=== PATIENT | male | born 1990 | race Hispanic/Latino ===

== ENCOUNTER 2018-04-16 12:33 | Emergency (ER) | payer MEDICAID ==
[2018-04-16 12:46] VITALS: BMI 38.0
[2018-04-16] MEDS ORDERED: Morphine 2 mg/ml ISec IVP STA (13:29)
--- NOTE | 2018-04-16 13:37 | ED PDOC ---
Arrival/HPI - General Chief Complaint: Back Pain Time Seen by Provider: 04/16/18 12:46 Historian: Patient - History of Present Illness Narrative History of Present Illness (Text): 04/16/18 13:32 Pt is a 27 yo M with PMH of hyperlipidemia and GERD presents to Emergency department due to right sided abdominal pain. Patient states that pain was sudden in onset this AM localized to the RLQ that radiates to the back. Patient denies radiation to groin or any groin pain. Patient states that pain is worsened with movements and denies any alleviating factors. Patient states that his urine has been dark, but denies hematuria. Patient states that he has some constipation, with minor rectal bleeding and pain when he's constipated. Patient denies chest pain, shortness of breath, nausea, vomiting, diarrhea, fever, chills, headache, or dizziness. Time/Duration: 1-3 hours Symptom Course: Unchanged Quality: Stabbing, Throbbing Severity Level: 9 Past Medical History - Infectious Disease Hx of Infectious Diseases: None - Pulmonary Hx Respiratory Disorders: No - Neurological Hx Neurological Disorder: No - HEENT Hx HEENT Disorder: No - Renal Hx Renal Disorder: No - Endocrine/Metabolic Hx Endocrine Disorders: No - Hematological/Oncological Hx Blood Disorders: No - Integumentary Hx Dermatological Disorder: No - Musculoskeletal/Rheumatological Hx Musculoskeletal Disorders: No - Gastrointestinal Hx Gastrointestinal Disorders: No - Genitourinary/Gynecological Hx Genitourinary Disorders: No - Psychiatric Hx Psychophysiologic Disorder: No Hx Substance Use: Yes - Anesthesia Hx Anesthesia: No Family/Social History Family/Social History: No Known Family HX Smoking Status: Current Some Days Smoker Hx Alcohol Use: Yes Frequency of alcohol use: Socially Hx Substance Use: Yes Allergies/Home Meds Allergies/Adverse Reactions: Allergies shellfish derived Allergy (Unknown, Verified 04/16/18 13:04) ANGIOEDEMA Review of Systems - Physician Review All systems were reviewed & negative as marked: Yes (12 point ROS reviewed and is negative other than what is stated in HPI.) Physical Exam Vital Signs Reviewed: Yes Vital Signs Temp Pulse Resp BP Pulse Ox 04/16/18 17:01 98 F 78 18 129/71 100 04/16/18 13:45 78 18 143/78 98 04/16/18 12:40 97.8 F 80 20 209/113 H 99 Temperature: Afebrile Blood Pressure: Normal Pulse: Regular Respiratory Rate: Normal Appearance: Positive for: Uncomfortable Pain Distress: Severe Mental Status: Positive for: Alert and Oriented X 3 - Systems Exam Head: Present: Atraumatic, Normocephalic Pupils: Present: PERRL Extroacular Muscles: Present: EOMI Conjunctiva: Present: Normal Mouth: Present: Moist Mucous Membranes Neck: Present: Normal Range of Motion Respiratory/Chest: Present: Clear to Auscultation. No: Wheezes, Rales, Rhonchi Cardiovascular: Present: Regular Rate and Rhythm, Normal S1, S2. No: Murmurs, Rub, Gallop Abdomen: Present: Tenderness (RLQ), Peritoneal Signs, Guarding, McBurney's Point Tender. No: Distention, Rebound, Rovsing's Sign Present Upper Extremity: Present: Normal Inspection. No: Cyanosis, Edema Lower Extremity: Present: Normal Inspection. No: Edema Neurological: Present: GCS=15, CN II-XII Intact Skin: Present: Warm, Dry, Normal Color. No: Rashes Psychiatric: Present: Alert, Oriented x 3, Normal Insight, Normal Concentration Medical Decision Making ED Course and Treatment: 04/16/18 15:21 27 yo M presents with sudden onset right sided abdominal pain. Plan: - CBC, CMP - UA - CT abd/pelvis - Morphine - NPO - Reassess and disposition 04/16/18 15:42 Patient reassessed at bedside after morphine. Patient appears more comfortable, but states that pain is still present. CT abd/pelvis showed no active disease. RUQ US ordered. 04/16/18 17:14 US showed fatty infiltration of the liver, but no cholecystitis. Results were discussed with patient. As pain had improved and patient was more comfortable, patient was discharged. Patient was counselled on the ddx and that no emergent cause of his abdominal pain was found. patient was advised to follow up with his PMD within one week. Patient was also counselled on risks and advised to return to the Emergency department if symptoms worsen. - Lab Interpretations Lab Results: 04/16/18 13:44 04/16/18 13:44 Lab Results 04/16/18 13:46: Urine Color Yellow, Urine Appearance Clear, Urine pH 6.0, Ur Specific [place] 1.025, Urine Protein 30 H, Urine Glucose (UA) Negative, Urine Ketones Negative, Urine Blood Negative, Urine Nitrate Negative, Urine Bilirubin Negative, Urine Urobilinogen 0.2, Ur Leukocyte Esterase Negative, Urine RBC 1 - 3, Urine WBC 0 - 2, Ur Epithelial Cells None 04/16/18 13:44: Sodium 148, Potassium 3.6, Chloride 113 H, Carbon Dioxide 22, Anion Gap 17, BUN 14, Creatinine 1.1, Est GFR ( Amer) > 60, Est GFR (Non- Af Amer) > 60, Random Glucose 103, Calcium 9.9, Phosphorus 2.1 L, Magnesium 2.0 , Total Bilirubin 0.5, AST 34, ALT 48, Alkaline Phosphatase 59, Total Protein 8.2, Albumin 5.0 H, Globulin 3.3, Albumin/Globulin Ratio 1.5 04/16/18 13:44: WBC 8.7, RBC 4.76, Hgb 15.3, Hct 42.0, MCV 88.2, MCH 32.1, MCHC 36.4, RDW 12.9, Plt Count 266, MPV 10.4 - RAD Interpretation Radiology Orders: 04/16/18 13:38 ABD & PELVIS IV CONTRAST ONLY [CT] Stat 04/16/18 15:41 GALLBLADDER & COMMON DUCT [US] Stat - Medication Orders Current Medication Orders: Discontinued Medications Morphine Sulfate (Morphine) 2 mg IVP STAT STA Stop: 04/16/18 13:30 Last Admin: 04/16/18 13:44 Dose: 2 mg [facility] Pain Assessment Document 04/16/18 13:44 SF (Rec: 04/16/18 13:44 [place] [email or web address] Pain Reassessment Is this a pain reassessment? Yes Sleep Is patient sleeping during reassessment? No Presence of Pain Presence of Pain Yes IVP Administration Document 04/16/18 13:44 SF (Rec: 04/16/18 13:44 SF [email or web address] Charges for Administration # of IVP Administrations 1 Re-Assess: [facility] Pain Assessment Document 04/16/18 16:42 LA (Rec: 04/16/18 16:42 LA [id number]) Pain Reassessment Is this a pain reassessment? Yes Sleep Is patient sleeping during reassessment? No Presence of Pain Presence of Pain No Pain Scale Used Pain Scale Used Numeric Location Left, Right or Bilateral Right Pain Location Body Site Abdomen Description Description Intermittent Intensity of Pain at present 0 Morphine Sulfate (Morphine) 4 mg IVP STAT STA Stop: 04/16/18 13:39 Last Admin: 04/16/18 13:44 Dose: 4 mg [facility] Pain Assessment Document 04/16/18 13:44 SF (Rec: 04/16/18 13:45 [place] [facility] [email or web address] Pain Reassessment Is this a pain reassessment? Yes Sleep Is patient sleeping during reassessment? No Presence of Pain Presence of Pain Yes IVP Administration Document 04/16/18 13:44 SF (Rec: 04/16/18 13:45 SF [facility] [email or web address] Charges for Administration # of IVP Administrations 1 Re-Assess: [facility] Pain Assessment Document 04/16/18 16:42 LA (Rec: 04/16/18 16:42 LA [id number]) Pain Reassessment Is this a pain reassessment? Yes Sleep Is patient sleeping during reassessment? No Presence of Pain Presence of Pain No Disposition/Present on Arrival - Present on Arrival Any Indicators Present on Arrival: No History of DVT/PE: No History of Uncontrolled Diabetes: No Urinary Catheter: No History of Decub. Ulcer: No History Surgical Site Infection Following: None - Disposition Have Diagnosis and Disposition been Completed?: Yes Diagnosis: Abdominal pain, Back pain Disposition: HOME/ ROUTINE Disposition Time: 17:18 Patient Plan: Discharge Condition: STABLE Discharge Instructions (ExitCare): Acute Abdomen (Belly Pain), Adult (DC), Low Back Pain (DC) Additional Instructions: 1. Follow up with PMD within 1 week 2. May use ibuprofen for pain as needed, take with food 3. Return to Emergency department if symptoms worsen KALA HERNANDEZ, thank you for letting us take care of you today. Your provider was Stan Hamilton MD and you were treated for R SIDE FLANK PAIN. The emergency medical care you received today was directed at your acute symptoms. If you were prescribed any medication, please fill it and take as directed. It may take several days for your symptoms to resolve. Return to the Emergency Department if your symptoms worsen, do not improve, or if you have any other problems. Please contact your doctor or call one of the physicians/clinics you have been referred to that are listed on the Patient Visit Information form that is included in your discharge packet. Bring any paperwork you were given at discharge with you along with any medications you are taking to your follow up visit. Our treatment cannot replace ongoing medical care by a primary care provider outside of the emergency department. Thank you for allowing the [facility] team to be part of your care today. Prescriptions: Ibuprofen [Motrin] 600 mg PO TID PRN #15 tab PRN Reason: Pain, Moderate (4-7) Forms: [employer] (Kinyarwanda)
[2018-04-16] MEDS ORDERED: Morphine 4 mg/ml ISec IVP STA (13:38)
[2018-04-16 13:46] VITALS: PULSE 78; RESP 18
[2018-04-16 13:57] LABS: ALB/GLOB RATIO 1.5 (1.1-1.8); ALT/SGPT 48 U/L (7-56); AST/SGOT 34 U/L (17-59); BLOOD UREA NITROGEN 14 mg/dL (7-21); CALCIUM 9.9 mg/dL (8.4-10.5); GFR AFRICAN-AMERICAN > 60; GFR NON-AFRICAN AMERICAN > 60; HEMOGLOBIN 15.3 g/dL (14.0-18.0); MEAN CELL VOLUME 88.2 fl (80.0-105.0); MEAN CORPUSCULAR HEMOGLOBIN 32.1 pg (25.0-35.0); MEAN CORPUSCULAR HGB CONC 36.4 g/dl (31.0-37.0); MEAN PLATELET VOLUME 10.4 fl (7.0-11.0); RBC 4.76 10^6/uL (3.5-6.1); RED CELL DISTRIBUTION WIDTH 12.9 % (11.5-14.5); WHITE BLOOD COUNT 8.7 10^3/ul (4.5-11.0)
[2018-04-16 14:08] LABS: URINE BILIRUBIN NEGATIVE (NEGATIVE); URINE BLOOD NEGATIVE (NEGATIVE); URINE GLUCOSE (UA) NEGATIVE (NEGATIVE); URINE LEUKOCYTE ESTERASE NEGATIVE Leu/uL (NEGATIVE); URINE PROTEIN 30 mg/dL (<30 mg/dL); URINE UROBILINOGEN 0.2 E.U./dL (<1 E.U./dL)
[2018-04-16 14:11] LABS: URINE APPEARANCE CLEAR (CLEAR); URINE COLOR YELLOW (YELLOW)
[2018-04-16] MEDS ORDERED: Iohexol 350 MG/100 ML VIAL ONE (14:23)
[2018-04-16 14:24] LABS: URINE WBC 0 - 2 /hpf (0-6)
--- NOTE | 2018-04-16 15:32 | CT ---
PROCEDURE: CT Abdomen and Pelvis with contrast HISTORY: abdominal pain COMPARISON: None. TECHNIQUE: Contrast dose: 100 cc of Omni 350 Radiation dose: Total exam DLP = 1068 mGy-cm. This CT exam was performed using one or more of the following dose reduction techniques: Automated exposure control, adjustment of the mA and/or kV according to patient size, and/or use of iterative reconstruction technique. FINDINGS: LOWER THORAX: Unremarkable. LIVER: Unremarkable. No gross lesion or ductal dilatation. GALLBLADDER AND BILE DUCTS: Unremarkable. PANCREAS: Unremarkable. No gross lesion or ductal dilatation. SPLEEN: Unremarkable. ADRENALS: Unremarkable. No mass. KIDNEYS AND URETERS: Unremarkable. No hydronephrosis. No solid mass. VASCULATURE: Unremarkable. No aortic aneurysm. BOWEL: Unremarkable. No obstruction. No gross mural thickening. APPENDIX: Normal appendix. PERITONEUM: Unremarkable. No free fluid. No free air. LYMPH NODES: Unremarkable. No enlarged lymph nodes. BLADDER: Unremarkable. REPRODUCTIVE: Unremarkable. BONES: No acute fracture. OTHER FINDINGS: None. IMPRESSION: No acute intra-abdominal findings
--- NOTE | 2018-04-16 16:43 | US ---
HISTORY: abdominal pain COMPARISON: None. TECHNIQUE: Sonographic evaluation of the right upper quadrant of the abdomen. FINDINGS: LIVER: Measures 15.73 x 13.53 cm in length. Increased echogenicity of the liver parenchyma. No mass. No intrahepatic bile duct dilatation. GALLBLADDER: Unremarkable. No gallstones. COMMON BILE DUCT: Measures 6 mm. No stones. No dilatation. PANCREAS: Unremarkable as visualized. No mass. No ductal dilatation. RIGHT KIDNEY: Measures 12 x 6.36 x 4.82 cm in length. Normal echogenicity. No calculus, mass, or hydronephrosis. AORTA: Not visualize IVC: Not visualize OTHER FINDINGS: None . IMPRESSION: No evidence of cholecystitis. Fatty infiltration of the liver
[2018-04-16 17:06] VITALS: BP 129/71; TEMP 98; O2SAT 100
--- NOTE | 2018-04-17 10:42 | CARD ---
APPROVED REPORT EKG Measurement Heart [id number] [id number] <Conclusion> Normal sinus rhythm Normal ECG
== END 2018-04-16 17:01 | disposition home or self-care (01) ==
LOC: ED 12:33
DX: M54.9 Dorsalgia, unspecified (principal); R10.9 Unspecified abdominal pain; E78.5 Hyperlipidemia, unspecified
CPT/HCPCS: 74177; 76705; 80053; 81001; 83735; 84100; 85027; 93005; 96374; 99283; J2270; Q9967